=== PATIENT | male | born 1955 | race Hispanic/Latino ===

== ENCOUNTER → 2018-09-09 | Outpatient (CLI) | payer OTHER ==
--- NOTE | 2018-09-09 16:39 | Diagnostic Imaging Report ---
Left Elbow MRI without contrast. History: Elbow pain. Decreased range of motion. Pain not responding to conservative management Comparison: None Technique: Coronal, sagittal, and axial PD FSE and PD FSE FS. Findings: Mild common extensor tendinosis at the humeral insertion site. The common extensor tendon origin is otherwise normal. The common flexor tendon origin is normal. The anterior and posterior bands of the MCL are normal. The lateral ulnar collateral ligament and radial collateral ligament proper are normal. No osteochondral lesions. Physiologic amount of fluid within the joint. Signal intensity within the ulnar nerve is normal. The biceps and brachialis tendon insertions are normal. The triceps tendon is normal. No fracture, osteonecrosis, or dislocation. Mild degenerative arthrosis most pronounced at the distal humerus. This is best seen on sagittal image 12 and coronal image 11 and 12. Impression: Mild degenerative arthrosis most pronounced at the distal humerus. Mild common extensor tendinosis at the humeral insertion site. The common extensor tendon origin is otherwise normal. Signed by: Dr. Robert Jamison M.D. on 09/09/2018 4:36 PM
--- NOTE | 2018-09-09 17:11 | Diagnostic Imaging Report ---
MRI of the left shoulder without contrast. History: Shoulder pain. Decreased range of motion. Pain not responding to conservative management. Comparison: None Technique: Coronal PD FS, sagital PD FS, and axial PD and PD FS. Findings: Rotator cuff: There is rotator cuff tendinosis with midsubstance partial tearing involving the anterior fibers of the supraspinatus and infraspinatus tendons at the humeral insertion site. Fluid signal intensity is seen tracking centrally within the substance of the infraspinatus muscle. Additionally, there is subscapularis tendinosis. The teres minor tendon is intact. Osseous acromion complex: There is a type II acromion with mild lateral downsloping. There is moderate degenerative arthrosis at the acromioclavicular joint with undersurface spurring and narrowing of the supraspinatus tendon outlet. There is mild subacromial/subdeltoid bursitis. Glenohumeral joint: There is tearing of the anterior superior labrum with an adjacent 4 mm cyst. The articular cartilage surfaces are thinned with regions of fraying and fissuring. The humeral head is well-seated in the glenoid fossa. Biceps tendon: The biceps tendon is intact. Other findings: Negative for muscle denervation or osseous fracture. Impression: Rotator cuff tendinosis with midsubstance partial tearing involving the anterior fibers of the supraspinatus and infraspinatus tendons at the humeral insertion site. Fluid signal intensity is seen tracking centrally within the substance of the infraspinatus muscle. Tearing of the anterior superior labrum with an adjacent 4 mm cyst. Moderate degenerative arthrosis at the acromioclavicular joint with undersurface spurring and narrowing of the supraspinatus tendon outlet. There is mild subacromial/subdeltoid bursitis Signed by: Dr. Robert Jamison M.D. on 09/09/2018 5:07 PM
== END ==
LOC: MRI 15:35
PROVIDERS: ATTEND Family Medicine
DX: M25.522 Pain in left elbow (principal); S46.912D Strain of unspecified muscle, fascia and tendon at shoulder and upper arm level, left arm, subsequent encounter

== ENCOUNTER → 2020-07-10 | Day surgery (SDC) | payer MEDICARE ==
[2020-06-22 11:48] LABS: BASOPHILS # (AUTO) 0.1 (0.0-0.1); BASOPHILS % 0.6 % (0.0-1.0); EOSINOPHILS # (AUTO) 0.3 (0.0-0.4); EOSINOPHILS % 3.4 % (0.0-6.0); HEMATOCRIT 41.9 % (38.2-49.6); HEMOGLOBIN 13.7 g/dL (14.0-18.0); LYMPHOCYTES # (AUTO) 2.6 (1.0-3.2); LYMPHOCYTES % 32.4 % (18.0-39.1); MEAN CORPUSCULAR HGB CONC 32.7 g/dL (31-35); MEAN CORPUSCULAR VOLUME 91.7 fL (81-99); MONOCYTES # (AUTO) 0.7 (0.2-0.8); MONOCYTES % 8.8 % (4.4-11.3); NEUTROPHILS # (AUTO) 4.3 (2.1-6.9); NEUTROPHILS % 54.4 % (38.7-80.0); PLATELET COUNT 235 x10e3/uL (140-360); RED BLOOD COUNT 4.57 x10e6/uL (4.3-5.7); RED CELL DISTRIBUTION WIDTH 13.9 % (11.7-14.4)
[~2020-07-10] MED LIST: ATORVASTATIN CA10 MG PO; FLOMAX0.4 MG PO; PROTONIX20 MG PO
[2020-07-10 13:05] VITALS: BP 132/86
== END | disposition home or self-care (01) ==
LOC: OR 09:25
PROVIDERS: ATTEND Internal Medicine Gastroenterology
DX: R13.10 Dysphagia, unspecified (principal); K29.50 Unspecified chronic gastritis without bleeding; K22.8 Other specified diseases of esophagus; K21.9 Gastro-esophageal reflux disease without esophagitis; K44.9 Diaphragmatic hernia without obstruction or gangrene; D72.820 Lymphocytosis (symptomatic); U07.1 COVID-19; E78.5 Hyperlipidemia, unspecified; R03.0 Elevated blood-pressure reading, without diagnosis of hypertension; R07.9 Chest pain, unspecified; Z01.810 Encounter for preprocedural cardiovascular examination; Z01.812 Encounter for preprocedural laboratory examination; Z80.0 Family history of malignant neoplasm of digestive organs
CPT/HCPCS: 36415; 43239; 85025; 93005; U0002